=== PATIENT | male | born 1965 ===

== ENCOUNTER → 2025-04-29 | Outpatient (CLI) | payer OTHER ==
[~2025-04-29] MED LIST: DICLOFENAC POTA50 MG PO; DULCOLAX5 MG PO; DULOXETINE HCL30 MG PO; DULOXETINE HCL60 MG PO; GABAPENTIN300 M2 PO; GABAPENTIN400 MG PO; HORIZANT600 MG PO; TIZANIDINE HCL4 M1 PO; ZANAFLEX2 MG PO
== END | disposition home or self-care (01) ==
LOC: MRI 10:54
PROVIDERS: ATTEND Physical Medicine & Rehabilitation
DX: M54.2 Cervicalgia (principal)
CPT/HCPCS: 72141